=== PATIENT | female | born 1965 | race Caucasian/White ===

== ENCOUNTER 2017-03-29 01:19 | Emergency (ER) | payer SELFPAY ==
[~2017-03-29] VITALS: Ht 162.6 cm; Wt 48.0 kg
[2017-03-29 01:34] VITALS: BP 123/71
== END 2017-03-29 06:47 | disposition left against medical advice (07) ==
LOC: ER 01:19
DX: H53.8 Other visual disturbances (principal); Z53.21 Procedure and treatment not carried out due to patient leaving prior to being seen by health care provider